=== PATIENT | female | born 1975 | race Two or more races ===

== ENCOUNTER 2019-07-24 18:54 | Observation (INO) | payer OTHER, SELFPAY ==
[2019-07-24] VITALS (11 sets, daily range): BP systolic 119–149; BP diastolic 68–103; PULSE 75–98; RESP 16–20; TEMP 36.4–36.8; O2SAT 98–100; BMI 24.7; BMI 24.2
--- NOTE | 2019-07-24 19:34 | EKG12_ITS ---
Test Reason : CP Blood Pressure : / mmHG Vent. Rate : 076 BPM Atrial Rate : 076 BPM P-R Int : 156 ms QRS Dur : 074 ms QT Int : 376 ms P-R-T Axes : 057 036 044 degrees QTc Int : 423 ms Normal sinus rhythm Normal ECG Confirmed by BRANDY HUGHES, ELVA ([id number]), editorial project manager JOSH CASTELLON ([id number]) on 07/28/2019 9:47:42 AM Referred By: Reese Bueno Confirmed By:PRISCILLA NAVA MD
--- NOTE | 2019-07-24 19:34 | CT_ITS ---
STUDY: CT BRAIN WITHOUT CONTRAST REASON FOR EXAM: Female, 44 years old. Left arm weakness and numbness RADIATION DOSAGE (If Supplied By Facility): CTDIvol = ( 44.99 ) mGy, DLP = ( 7450.49 ) mGycm TECHNIQUE: Transaxial CT imaging of the brain was performed without administration of intravenous contrast material. Individualized dose optimization techniques were used for this CT. COMPARISON: No relevant priors. FINDINGS: Normal soft tissue structures. Normal calvarium. Normal size ventricles and extra-axial spaces for the patient's age. Normal white matter tracts of the cerebral hemispheres. Normal basal ganglia and thalami. Normal brainstem. Normal cerebellum. There is no intracranial hemorrhage. There are no findings of an acute ischemic infarction. Normal visualized paranasal sinuses. CT/Brain/Head without Contrast IMPRESSION: Normal unenhanced CT scan of the brain. N.B. : The above information has been verbally conveyed by Tylor Chaudhari MD to Rajani Arreaga MD, on 07/24/2019 19:57:12 (ET). Electronically Signed: Tylor Chaudhari MD at 19:58 EDT , Service support ,
--- NOTE | 2019-07-24 19:34 | RAD_ITS ---
STUDY: X-RAY CHEST REASON FOR EXAM: Female, 44 years old. Intermittent chest pain TECHNIQUE: Single AP portable view of the chest. COMPARISON: None. FINDINGS: EKG leads overlie the chest The lungs are clear and expanded. There is no demonstrated pleural abnormality. Normal size heart. Normal mediastinum and brooke. Normal visualized pulmonary arteries. Normal visualized aortic arch and descending thoracic aorta. Normal visualized thoracic spine. Normal visualized ribs, clavicles, and shoulders. There is no demonstrated abnormality of the visualized soft tissue structures of the upper abdomen. RAD/Chest 1 View IMPRESSION: Normal x-ray examination of the chest. Electronically Signed: Tylor Chaudhari MD at 20:11 EDT , Service support ,
[2019-07-24 19:46] LABS: Bedside Glucose 98 mg/dL (70-110)
--- NOTE | 2019-07-24 19:46 | ED.RN ---
[facility] CALLED AND RECIEVED PT INFORMATION. PT IN CT SCAN. WILL CALL BACK WHEN PT RETURNS FROM CT TO ROOM. DR. CARRASCO MADE AWARE.
[2019-07-24 20:04] LABS: Absolute Lymphocyte Count 3.67 X10^3/uL (0.83-4.51); Absolute Neutrophil Count 6.1 X10^3/uL (2.0-7.7); Basophil# 0.04 X10^3/uL; Basophil% 0.4 % (0-1); Eosinophil# 0.16 X10^3/uL; Eosinophils% 1.5 % (0-5); Hemoglobin 10.8 g/dL (12.0-15.0); Lymphocyte # 3.67 X10^3/ul (4.0); Lymphocyte % 34.6 % (19-41); Mean Corpuscular Hgb 21.8 pg (27.0-32.0); Mean Corpuscular Volume 72.6 fL (81-99); Mean Platelet Vol. 10.3 fl (6.2-12.0); Monocyte# 0.56 X10^3/uL; Monocyte% 5.3 % (0-10); NRBC Flagged by Analyzer 0 % (0-5); Neutrophil # 6.14 X10^3/uL (2.7-7.7); Neutrophil % 57.9 % (47-70); Platelet Count 348 K/mm3 (150-450); RBC Distribution Width CV 16.7 % (11.6-14.6); RBC Distribution Width SD 42.2 fl (35.1-43.9); Red Blood Count 4.96 M/mm3 (4.2-5.4); White Blood Count 10.6 K/mm3 (4.4-11.0)
[2019-07-24 20:12] LABS: International Normalized Ratio 0.9
[2019-07-24 20:13] LABS: Partial Thromboplast Time 25.8 Seconds (24.1-36.2)
[2019-07-24 20:25] LABS: Anion Gap 8 (5-15); BUN 12 mg/dL (7-18); Calcium,Total 9.3 mg/dL (8.5-10.1); Chloride 106 mmol/L (98-107); Creatinine, Serum 0.66 mg/dL (0.55-1.02); EST Glomerular Filtration Rate 103 mL/min (>60); Est Glom Filt Rate - Afr Amer 125 mL/min (>60); Estimated Creatinine Clearance 95.89 ml/min; Glucose 95 mg/dL (74-106); Potassium 3.6 mmol/L (3.5-5.1); Sodium Level 139 mmol/L (136-145)
[2019-07-24] MEDS: Aspirin 325 MG Tablet PO (21:13)
--- NOTE | 2019-07-24 22:41 | ED.RN ---
PER DR. CARRASCO, PT NO LONGER NEEDS NIHSS.
--- NOTE | 2019-07-24 22:46 | ED.VISSUMM ---
- ER Visit Summary Date of Service: 07/24/19 Chief Complaint: Chest pain History of Present Illness: The patient is a 44 F presenting with chest pain. Patient states she has had intermittent left chest pain which started yesterday. She states the pain has been waxing and waning. It is a heaviness in her left chest. She does not recall anything that makes this better or worse. She denies shortness of breath, nausea, vomiting, diaphoresis. Denies lightheadedness or syncope. She also states that she has had left arm and leg tingling sensation. She had this this morning and it went away, returned again at 530 this evening. She denies CAD risk factors. No PE/DVT risk factors. Physical Examination: Vitals are stable. Patient is afebrile. Alert no acute distress. HEENT exam is unremarkable. Neck is supple. Lungs are clear and equal bilaterally. Heart is regular rate and rhythm. Abdomen is soft nontender nondistended. Extremities are unremarkable. Skin is warm and dry. NIH 1: Sensation left arm and leg Remainder of exam is unremarkable. Emergency Department Course and Treatment: EKG is sinus rate of 76 with no acute ischemic changes. Chest x-ray shows no acute process. On arrival her NIH is 1. Her symptoms have been intermittent. It had been completely resolved and returned again 2 hours prior to arrival to the ED. Discussed with [facility] neurology. Patient was evaluated by [facility] neurology per robot. CT head shows no acute process. TPA is not recommended at this time. Patient states her symptoms are improving. CBC shows hemoglobin 10.8. Chemistries unremarkable. INR 0.9. Troponin is negative. Patient was given aspirin after passing swallow evaluation. Discussed with the hospitalist for admission. Disposition: Observation Impression: Chest pain, left arm paresthesia This note was generated with [employer] dictation software. It may contain incorrect words, spelling, and punctuation that were not noted in review of the chart prior to signing
--- NOTE | 2019-07-24 23:28 | EKG12_ITS ---
Test Reason : ADMIT Blood Pressure : / mmHG Vent. Rate : 076 BPM Atrial Rate : 076 BPM P-R Int : 118 ms QRS Dur : 070 ms QT Int : 376 ms P-R-T Axes : 037 012 032 degrees QTc Int : 423 ms Normal sinus rhythm Normal ECG When compared with ECG of 24-JUL-2019 19:04, MANUAL COMPARISON REQUIRED, DATA IS UNCONFIRMED Confirmed by SEGUNDO COLEMAN ([id number]), make up editor JOSH CASTELLON ([id number]) on 07/28/2019 10:45:46 AM Referred By: Reese Bueno Confirmed By:SEGUNDO COLEMAN
--- NOTE | 2019-07-24 23:32 | PCM.HP.STD ---
Problem List (1) Chest pain Status: Acute (2) Left-sided tingling Status: Acute History of Present Illness Date of Admission: 07/24/19 Chief Complaint: Chest pain today The patient is a 44 year old F with no significant past medical history came to ER with chest pain that started yesterday evening. The chest pain is intermittent, left-sided, lasted for few minutes but is getting more prolonged today. She denies associated shortness of breath, palpitation, missed heartbeat, dizziness, blurry vision or diaphoresis. Chest pain felt like heaviness. Today afternoon about 1330 hrs. she also had left arm and left leg tingling sensation which returned at about 5:30 PM on the day of admission. No first-degree family history of coronary artery disease/PR or stroke. Her mother has diabetes. She denies any focal weakness, neck pain, headache, loss of consciousness or other stroke symptoms. Tingling sensation is resolved. Telemetry stroke team was consulted from ER physician Dr. Arreaga was told no high risk for stroke. CT head no acute process. No TPA recommended. Aspirin was given. Patient was advised MRI brain tomorrow. [] EKG shows normal sinus rhythm 76 bpm. Chest x-ray normal. Chest pain is resolved. Patient took Prilosec yesterday thinking of acid reflux pain. Past Medical History Allergies No Known Allergies Allergy (Verified 07/24/19 18:57) Home Medications: Ambulatory Orders Medication Instructions Recorded Omeprazole Magnesium [Prilosec Otc] 20 mg PO DAILY 07/24/19 Smoking Status: Never smoker - *Family History Maternal History Items: Diabetes, No pertinent history - No history of cardiac disease, stroke or peripheral artery disease in first-degree family relative. Review of Systems Constitutional: Denies: Chills, Fever, Weight Change HEENT: Denies: Head Aches, Sinus Congestion, Sinus Drainage Cardiovascular: Reports: Chest Pain. Denies: Palpitations Respiratory: Denies: Cough, Shortness of breath at rest, Sputum production Gastrointestinal: Denies: Abdominal Pain, Nausea, Vomiting Genitourinary: Denies: Dysuria Musculoskeletal: Denies: Joint Pain, Joint Tenderness Skin: Denies: Rash, Wounds Neurological: Reports: Tingling. Denies: Focal weakness, Numbness Psychiatric: Denies: Anxiety, Depression, Homicidal Ideations, Suicidal Ideations Hematologic/ Lymphatic: Denies: Easy Bruising, Easy Bleeding VTE Information - Inpt Only VTE Present on Admission: No VTE Mechan Device Prophylaxis: None VTE Pharm Prophylaxis ordered?: No Reason prophylaxis not ordered:: Procedure Not Indicated Patient Problems: Active and Suspected Problems Chest pain (Acute) Left-sided tingling (Acute) - Physical Exam General: Alert, Oriented x3, Cooperative HEENT: Atraumatic, PERRLA, EOMI, Normocephalic Neck: Supple, No JVD, Negative Carotid Bruits Lungs: Clear to auscultation, Normal air movement, No rhonchi, No wheeze, No rales Cardiovascular: Regular rate, Regular Rhythm, Normal S1, Normal S2, No murmurs Abdomen: Bowel Sounds Present, Soft, Non Tender Extremities: No edema, Capillary Refill Less than 3 Seconds Skin: No rashes, No breakdown Musculoskeletal: No Tenderness to Palpation of Joints or Extremities Neurological: Cranial nerves II-XII grossly intact, Deep Tendon Reflexes 2+/4 and Symmetrical, Neuro grossly intact, Motor Exam 5/5 strength throughout, - - NIH stroke scale 0. Tingling sensation of left upper and lower extremity has resolved. Psych/Mental Status: Normal Affect, Appropriate Vital Signs Temp Pulse Resp BP Pulse Ox 97.6 F L 94 18 149/85 H 100 07/24/19 18:57 07/24/19 23:00 07/24/19 23:00 07/24/19 23:00 07/24/19 23:00 Oxygen Delivery Method Room Air Weight: 144 lb 6.444 oz Body Mass Index (BMI) 24.7 Finger Stick Blood Glucose 98 Laboratory Tests Past 24 Hrs 07/24/19 07/24/19 07/24/19 19:57 19:57 19:57 WBC 10.6 RBC 4.96 Hgb 10.8 L Hct 36.0 L MCV 72.6 L MCH 21.8 L MCHC 30.0 L RDW Std Deviation 42.2 RDW Coeff of Leeann 16.7 H Plt Count 348 MPV 10.3 Immature Gran % (Auto) 0.300 Neut % (Auto) 57.9 Lymph % (Auto) 34.6 [place] % (Auto) 5.3 Eos % (Auto) 1.5 Baso % (Auto) 0.4 Absolute Neuts (auto) 6.1 Absolute Lymphs (auto) 3.67 Nucleated RBC % 0 PT 12.0 INR 0.9 APTT 25.8 Sodium 139 Potassium 3.6 Chloride 106 Carbon Dioxide 25.0 Anion Gap 8 BUN 12 Creatinine 0.66 Estim Creat Clear Calc 95.89 Est GFR (MDRD) Af Amer 125 Est GFR (MDRD) Non-Af 103 BUN/Creatinine Ratio 18.0 Glucose 95 Calcium 9.3 Troponin I < 0.015 POC Glucose 07/24/19 19:41 POC Glucose 98 Assessment/Plan All Active Problems Chest pain (Acute) Left-sided tingling (Acute) The patient is a 44 year old F with no significant past medical history came to ER with chest pain that started yesterday evening. [] EKG shows normal sinus rhythm 76 bpm. Chest x-ray normal. Chest pain is resolved. Patient took Prilosec yesterday thinking of acid reflux pain. 1. Atypical chest pain rule out acute coronary syndrome, possible GERD: Patient is being admitted in PCU. Serial troponin enzymes. Repeat EKG after 4 hours. Fasting profile tomorrow a.m. Treadmill nuclear stress tomorrow a.m. if serial troponins are negative. PPI ordered. 2. Left upper lower extremity transient tingling possible related to chest pain: Patient does not have neck pain or cervical radiculopathy. Telemetry stroke team was consulted from ER physician Dr. Arreaga was told no high risk for stroke. CT head no acute process. No TPA recommended. Aspirin was given. NIH stroke scale 0. MRI brain tomorrow a.m. 3. DVT prophylaxis: Low risk. Early ambulation encouraged. Laboratory Results 07/24/19 11:46: Magnesium Pending, Troponin I Pending 07/24/19 19:41: POC Glucose 98 07/24/19 19:57: WBC 10.6, RBC 4.96, Hgb 10.8 L, Hct 36.0 L, MCV 72.6 L, MCH 21.8 L, MCHC 30.0 L, RDW Std Deviation 42.2, RDW Coeff of Leeann 16.7 H, Plt Count 348, MPV 10.3, Immature Gran % (Auto) 0.300, Neut % (Auto) 57.9, Lymph % (Auto) 34.6, [place] % (Auto) 5.3, Eos % (Auto) 1.5, Baso % (Auto) 0.4, Absolute Neuts (auto) 6.1, Absolute Lymphs (auto) 3.67, Nucleated RBC % 0 07/24/19 19:57: PT 12.0, INR 0.9, APTT 25.8 07/24/19 19:57: Sodium 139, Potassium 3.6, Chloride 106, Carbon Dioxide 25.0, Anion Gap 8, BUN 12, Creatinine 0.66, Estim Creat Clear Calc 95.89, Est GFR (MDRD) Af Amer 125, Est GFR (MDRD) Non-Af 103, BUN/Creatinine Ratio 18.0, Glucose 95, Calcium 9.3, Troponin I < 0.015 Clinical Impression(s) from Imaging Studies Brain CT 07/24/19 19:34 IMPRESSION: Normal unenhanced CT scan of the brain. Chest X-Ray 07/24/19 19:34 IMPRESSION: Normal x-ray examination of the chest. Code Visit Inpatient E&M: 58063 Subs Hosp L2
[2019-07-25] VITALS (10 sets, daily range): BP systolic 111–134; BP diastolic 69–90; PULSE 67–88; RESP 14–18; TEMP 36.8; O2SAT 99–100
[2019-07-25] MEDS: 0.9% Normal Saline 1,000 ML 100 ML IV (00:27)
[2019-07-25] MEDS: Pantoprazole Sodium 40 MG Tablet PO ×2 (00:35→09:20)
[2019-07-25 00:47] LABS: Magnesium 1.7 mg/dL (1.6-2.6)
[2019-07-25 03:48] LABS: Cholesterol 182 mg/dL (200); High Density Lipoprotein 62 mg/dL; Thyroid Stim Hormone (TSH) 4.19 uIU/mL (0.358-3.74); Triglycerides 101 mg/dL; Very Low Density Lipoprotein 20 mg/dL (5-40)
--- NOTE | 2019-07-25 05:55 | MRI_ITS ---
STUDY: MRI BRAIN WITHOUT CONTRAST REASON FOR EXAM: Female, 44 years old. Left arm and leg tingling. TECHNIQUE: Standardized multiplanar fat and water weighted pulse sequences were obtained. COMPARISON: None. FINDINGS: Normal size of the ventricles and extra-axial spaces for the patient's age. Normal white matter tracts of the supratentorial brain. There is no evidence for recent intracranial ischemia or other cause of cytotoxic edema on diffusion weighted imaging (DWI). Normal T2* images of the brain without demonstrated susceptibility artifact. There is no demonstrated hemosiderin stain. Normal bilateral basal ganglia. Normal thalami. There is no extra-axial fluid accumulation. Normal flow voids within the major intracranial circulation suggesting patency by spin echo criteria. Normal sella turcica, pituitary gland, infundibular stalk, optic chiasm and hypothalamus. Normal tectal plate and pineal gland. Normal midbrain, donald and medulla. Normal cerebellum. Normal basal cisterns. Normal bilateral temporal bones. Normal bilateral internal auditory canals. No demonstrated orbital abnormality, within the constraints of a routine brain study. Normal visualized paranasal sinuses. Normal calvarium and skull base. Normal visualized soft tissue structures. Normal visualized upper cervical spine. MRI/Brain without Contrast IMPRESSION: 1. No evidence of acute intracranial bleed, mass or ischemia. Electronically Signed: Jaeysh Sanchez DO at 10:31 EDT , Service support ,
[2019-07-25] MEDS: Senna/Docusate Sodium 1 Tablet 2 TABLET PO (09:19)
[2019-07-25] MEDS: Aspirin E.C. 81 MG Tablet PO (09:19)
--- NOTE | 2019-07-25 11:25 | PN_ITS ---
<Karla German - Last Filed: 07/25/19 11:39> Patient Problems: Active and Suspected Problems Chest pain (Acute) Left-sided tingling (Acute) Subjective: Patient seen and examined. Patient reports she continues to have mild left upper extremity tingling that comes and goes. Denies neck pain. Denies left upper extremity numbness or unilateral weakness. Reports chest tenderness, denies chest pain. Chest pain seems to be reproducible. Plan for stress test in a.m. - Physical Exam General: Alert, Oriented x3, Cooperative HEENT: Atraumatic, PERRLA, EOMI, Normocephalic Neck: Supple, No JVD, Negative Carotid Bruits Lungs: Clear to auscultation, Normal air movement Cardiovascular: Regular rate, Regular Rhythm, Normal S1, Normal S2, No murmurs Abdomen: Bowel Sounds Present, Soft, Non Tender, Non-Distended Extremities: No clubbing, No cyanosis, No edema, Capillary Refill Less than 3 Seconds Skin: No rashes, No breakdown Musculoskeletal: No Tenderness to Palpation of Joints or Extremities Neurological: Cranial nerves II-XII grossly intact, Neuro grossly intact Psych/Mental Status: Normal Affect, Appropriate Vital Signs Temp Pulse Resp BP Pulse Ox 98.2 F 88 14 134/90 H 100 07/25/19 09:29 07/25/19 09:29 07/25/19 09:29 07/25/19 09:29 07/25/19 09:29 Oxygen Delivery Method Room Air Weight: 141 lb 1.533 oz Body Mass Index (BMI) 24.2 Finger Stick Blood Glucose 98 Intake and Output for Last 24 Hours 07/23/19 07/24/19 07/25/19 23:59 23:59 23:59 Intake Total 1703.33 / 1703.33 Balance 1703.33 / 1703.33 Laboratory Tests Past 24 Hrs 07/24/19 07/24/19 07/24/19 11:46 19:57 19:57 WBC 10.6 RBC 4.96 Hgb 10.8 L Hct 36.0 L MCV 72.6 L MCH 21.8 L MCHC 30.0 L RDW Std Deviation 42.2 RDW Coeff of Leeann 16.7 H Plt Count 348 MPV 10.3 Immature Gran % (Auto) 0.300 Neut % (Auto) 57.9 Lymph % (Auto) 34.6 [place] % (Auto) 5.3 Eos % (Auto) 1.5 Baso % (Auto) 0.4 Absolute Neuts (auto) 6.1 Absolute Lymphs (auto) 3.67 Nucleated RBC % 0 PT 12.0 INR 0.9 APTT 25.8 Sodium Potassium Chloride Carbon Dioxide Anion Gap BUN Creatinine Estim Creat Clear Calc Est GFR (MDRD) Af Amer Est GFR (MDRD) Non-Af BUN/Creatinine Ratio Glucose Calcium Magnesium 1.7 Troponin I < 0.015 Triglycerides Cholesterol LDL Cholesterol VLDL Cholesterol HDL Cholesterol TSH 07/24/19 07/25/19 19:57 02:52 WBC RBC Hgb Hct MCV MCH MCHC RDW Std Deviation RDW Coeff of Leeann Plt Count MPV Immature Gran % (Auto) Neut % (Auto) Lymph % (Auto) [place] % (Auto) Eos % (Auto) Baso % (Auto) Absolute Neuts (auto) Absolute Lymphs (auto) Nucleated RBC % PT INR APTT Sodium 139 Potassium 3.6 Chloride 106 Carbon Dioxide 25.0 Anion Gap 8 BUN 12 Creatinine 0.66 Estim Creat Clear Calc 95.89 Est GFR (MDRD) Af Amer 125 Est GFR (MDRD) Non-Af 103 BUN/Creatinine Ratio 18.0 Glucose 95 Calcium 9.3 Magnesium Troponin I < 0.015 < 0.015 Triglycerides 101 Cholesterol 182 LDL Cholesterol 100 VLDL Cholesterol 20 HDL Cholesterol 62 TSH 4.19 H POC Glucose 07/24/19 19:41 POC Glucose 98 Medical Necessity - Tobacco Use Smoking Status: Never smoker Assessment/Plan All Active Problems Chest pain (Acute) Left-sided tingling (Acute) 1. Atypical chest pain, rule out ACS-troponin negative. EKG without ST-T changes. Plan for stress test in a.m. Continue aspirin. 2. Left upper extremity tingling-MRI of brain shows no acute abnormality. Possible cervical radiculopathy. No symptoms currently, outpatient follow-up. 3. GERD- continue PPI. DVT prophylaxis-not indicated, early ambulation This patient was seen by Karla German NP-C under the supervision of Dr. Darby. <Ryan Darby - Last Filed: 07/25/19 11:58> - Physical Exam Vital Signs Temp Pulse Resp BP Pulse Ox 98.2 F 88 14 134/90 H 100 07/25/19 09:29 10/13/19 09:29 07/25/19 09:29 07/25/19 09:29 07/25/19 09:29 Oxygen Delivery Method Room Air Weight: 64 kg Body Mass Index (BMI) 24.2 Finger Stick Blood Glucose 98 Intake and Output for Last 24 Hours 07/23/19 07/24/19 07/25/19 23:59 23:59 23:59 Intake Total 1703.33 / 1703.33 Balance 1703.33 / 1703.33 Laboratory Tests Past 24 Hrs 07/24/19 07/24/19 07/24/19 11:46 19:57 19:57 WBC 10.6 RBC 4.96 Hgb 10.8 L Hct 36.0 L MCV 72.6 L MCH 21.8 L MCHC 30.0 L RDW Std Deviation 42.2 RDW Coeff of Leeann 16.7 H Plt Count 348 MPV 10.3 Immature Gran % (Auto) 0.300 Neut % (Auto) 57.9 Lymph % (Auto) 34.6 [place] % (Auto) 5.3 Eos % (Auto) 1.5 Baso % (Auto) 0.4 Absolute Neuts (auto) 6.1 Absolute Lymphs (auto) 3.67 Nucleated RBC % 0 PT 12.0 INR 0.9 APTT 25.8 Sodium Potassium Chloride Carbon Dioxide Anion Gap BUN Creatinine Estim Creat Clear Calc Est GFR (MDRD) Af Amer Est GFR (MDRD) Non-Af BUN/Creatinine Ratio Glucose Calcium Magnesium 1.7 Troponin I < 0.015 Triglycerides Cholesterol LDL Cholesterol VLDL Cholesterol HDL Cholesterol TSH 07/24/19 07/25/19 19:57 02:52 WBC RBC Hgb Hct MCV MCH MCHC RDW Std Deviation RDW Coeff of Leeann Plt Count MPV Immature Gran % (Auto) Neut % (Auto) Lymph % (Auto) [place] % (Auto) Eos % (Auto) Baso % (Auto) Absolute Neuts (auto) Absolute Lymphs (auto) Nucleated RBC % PT INR APTT Sodium 139 Potassium 3.6 Chloride 106 Carbon Dioxide 25.0 Anion Gap 8 BUN 12 Creatinine 0.66 Estim Creat Clear Calc 95.89 Est GFR (MDRD) Af Amer 125 Est GFR (MDRD) Non-Af 103 BUN/Creatinine Ratio 18.0 Glucose 95 Calcium 9.3 Magnesium Troponin I < 0.015 < 0.015 Triglycerides 101 Cholesterol 182 LDL Cholesterol 100 VLDL Cholesterol 20 HDL Cholesterol 62 TSH 4.19 H POC Glucose 07/24/19 19:41 POC Glucose 98 Assessment/Plan This patient was seen in conjunction with HEIDI Ulloa . I have independently interviewed and examined the patient and reviewed pertinent historical, laboratory, and other data. Please refer to HEIDI Ulloa note for details of this patient's presentation, findings, and recommendations. I have reviewed HEIDI Ulloa note and concur with documented findings. In brief, patient is a 44-year-old female admitted with chest pain as well as paresthesias involving her left side Physical Examination: GENERAL: cooperative HEENT: Atraumatic; moist oral mucosa EYES; Anicteric, Normal Conjunctiva NECK; supple, normal thyroid, RESPIRATORY: Diminished to auscultation, CARDIOVASCULAR: Regular S1 S2, no audible murmurs GI: soft, non-tender, normoactive bowel sounds, : No Renal angle tenderness; EXTREMITIES: No edema, no clubbing, no cyanosis. MUSCULOSKELETAL: No Joint Tenderness; NEURO: Awake; no lateralizing signs. SKIN: No Rash PSYCH; Normal affect Assessment: 1. Atypical chest pain 2. Left-sided paresthesias 3. GERD 4. Iron deficiency anemia?microcytic anemia (patient is a vegetarian) 5. DVT prophylaxis Recommendations: 1. I have discussed the results of my overview and impressions with the patient 2. Options for management were reviewed Code Visit OBSV E&M: 43520 Subsequent observation care L3
[2019-07-26] VITALS (8 sets, daily range): BP systolic 122–133; BP diastolic 66–84; PULSE 71–94; RESP 12–16; TEMP 36.4–36.8; O2SAT 97–100
[2019-07-26] MEDS: Aspirin E.C. 81 MG Tablet PO (05:12)
--- NOTE | 2019-07-26 05:55 | EKG12_ITS ---
Test Reason : AM EKG Blood Pressure : / mmHG Vent. Rate : 078 BPM Atrial Rate : 078 BPM P-R Int : 142 ms QRS Dur : 074 ms QT Int : 368 ms P-R-T Axes : 055 024 036 degrees QTc Int : 419 ms Normal sinus rhythm Normal ECG Confirmed by CLAUDIA HUGHES, BROOKS ([id number]), rewrite editor JOSH CASTELLON ([id number] on 07/28/2019 11:29:08 AM Referred By: Reese Bueno Confirmed By:BROOKS TAYLOR MD
[2019-07-26] MEDS: Pantoprazole Sodium 40 MG Tablet PO (08:17)
--- NOTE | 2019-07-26 10:42 | DCINST_ITS ---
- Discharge Diagnoses Current Active Problems: Current Active and Chronic Problems Chest pain (Acute) Left-sided tingling (Acute) You will use the following diet at home:: No restrictions Discharge Activity: Return to Normal Activity Call your doctor if you observe: Shortness of breath, Dizziness, Fainting spells, Chest pain Allergies/Adverse Reactions: Allergies No Known Allergies Allergy (Verified 07/24/19 18:57) Medications to take at Discharge Omeprazole Magnesium [Prilosec Otc] 20 mg PO DAILY 07/24/19 Primary Care Physician: Gladys Murray MD [Primary Care Provider] - Please follow up with your Primary Care Physician in: 1 Week Test Results: Test results from this visit will be discussed in further detail at your follow- up appointment, if applicable. Proposed Discharge Date: 07/26/19
--- NOTE | 2019-07-26 12:02 | PCM.DC.SUM ---
<Karla German - Last Filed: 07/26/19 12:14> Discharge Date and Diagnosis Date of Admission: 07/24/19 Date of Discharge: 07/26/19 - Primary Discharge Diagnosis Active and Suspected Problems 1. Musculoskeletal chest pain, ACS ruled out 2. Left-sided paresthesias, suspect secondary to cervical radiculopathy-CVA ruled out 3. GERD 4. Iron deficiency anemia Hospital Course and Treatment Imaging Results: Diagnostic Data Brain CT 07/24/19 19:34 IMPRESSION: Normal unenhanced CT scan of the brain. N.B. : The above information has been verbally conveyed by Tylor Chaudhari MD to Rajani Arreaga MD, on 07/24/2019 19:57:12 (ET). Electronically Signed: Tylor Chaudhari MD at 19:58 EDT , Service support , ADDENDUM: 07/24/192004 IMPRESSION: Normal unenhanced CT scan of the brain. N.B. : The above information has been verbally conveyed by Tylor Chaudhari MD to Rajani Arreaga MD, on 07/24/2019 19:57:12 (ET). Electronically Signed: Tylor Chaudhari MD at 19:58 EDT , Service support , Chest X-Ray 07/24/19 19:34 IMPRESSION: Normal x-ray examination of the chest. Electronically Signed: Tylor Chaudhari MD at 20:11 EDT , Service support , Brain MRI 07/25/19 05:55 IMPRESSION: 1. No evidence of acute intracranial bleed, mass or ischemia. Electronically Signed: Jayesh Sanchez DO at 10:31 EDT , Service support , Operations: None Procedures: Stress test Summary of Care Provided: The patient is a 44 year old F admitted 07/24/2019 due to chest pain. 1. Musculoskeletal chest pain, ACS ruled out-troponin negative. EKG without ST-T changes. Patient underwent stress test which was negative for ischemia. Suspect pain is musculoskeletal in nature. Follow-up with primary care physician in 1 week. 2. Left-sided paresthesias, suspect secondary to cervical radiculopathy-CVA ruled out. MRI of brain showed no acute abnormality. Patient denies neck pain. 3. GERD-continue home omeprazole regimen. 4. Iron deficiency anemia/microcytic anemia-recommend outpatient iron studies, B12 and folate as deficiencies may be related to paresthesias as well. Patient is a vegetarian, recommend iron supplementation pending outpatient iron studies. General: Alert, Oriented x3, Cooperative HEENT: Atraumatic, PERRLA, EOMI, Normocephalic Neck: Supple, No JVD, Negative Carotid Bruits Lungs: Clear to auscultation, Normal air movement Cardiovascular: Regular rate, Regular Rhythm, Normal S1, Normal S2, No murmurs Abdomen: Bowel Sounds Present, Soft, Non Tender, Non-Distended Extremities: No clubbing, No cyanosis, No edema, Capillary Refill Less than 3 Seconds Skin: No rashes, No breakdown Musculoskeletal: No Tenderness to Palpation of Joints or Extremities Neurological: Cranial nerves II-XII grossly intact, Neuro grossly intact Psych/Mental Status: Normal Affect, Appropriate Patient seen and examined prior to discharge. Physical assessment as noted above. Patient is stable for discharge with follow up recommendations as noted above. This patient was seen by HEIDI Ulloa under the supervision of Dr. Gray. - Physical Exam Vital Signs Temp Pulse Resp BP Pulse Ox 97.6 F L 76 12 122/66 H 97 07/26/19 09:10 07/26/19 10:58 07/26/19 09:10 07/26/19 09:10 07/26/19 09:10 Oxygen Delivery Method Room Air Weight: 141 lb 1.533 oz Body Mass Index (BMI) 24.2 Finger Stick Blood Glucose 98 Intake and Output for Last 24 Hours 07/24/19 07/25/19 07/26/19 23:59 23:59 23:59 Intake Total 2480.00 / 2720.00 720 / 720 Balance 2480.00 / 2720.00 720 / 720 Discharge Diet: No Restrictions Discharge Activity: Return to Normal Activity Call your doctor if you observe: Shortness of breath, Dizziness, Fainting spells, Chest pain Home Medications: Medications to take at Discharge Omeprazole Magnesium [Prilosec Otc] 20 mg PO DAILY 07/24/19 Primary Care Physician: Gladys Murray MD [Primary Care Provider] - Please follow up with your Primary Care Physician in: 1 Week Disposition: Home Minutes spent on discharge:: 35 Patient Condition:: Stable Medical Necessity - Tobacco Use Smoking Status: Never smoker Meaningful Use Info Meaningful Use Diagnoses (Choose all that apply): None applicable <Arnulfo Gray F - Last Filed: 07/26/19 13:50> Hospital Course and Treatment Imaging Results: 07/26/19 05:55 Nuclear Stress Test - Treadmil [NM] Routine Summary of Care Provided: The patient is a 44 year old F [] - Physical Exam Vital Signs Temp Pulse Resp BP Pulse Ox 97.6 F L 76 12 122/66 H 97 07/26/19 09:10 07/26/19 10:58 07/26/19 09:10 07/26/19 09:10 07/26/19 09:10 Oxygen Delivery Method Room Air Weight: 141 lb 1.533 oz Body Mass Index (BMI) 24.2 Finger Stick Blood Glucose 98 Intake and Output for Last 24 Hours 07/24/19 07/25/19 07/26/19 23:59 23:59 23:59 Intake Total 2480.00 / 2720.00 720 / 720 Balance 2480.00 / 2720.00 720 / 720 Code Visit Addendum: Dr. Gray I personally examined the patient and reviewed the chart. I agree with the above. 44-year-old female presenting with chest pain. She was not sure if this was from reflux or if it was due to her work where she thinks she may have pinched a nerve in her shoulder or strained her chest wall muscle. She had 3- troponins as well as a normal EKG. Stress test today was unremarkable and she was discharged with the understanding that she needs to follow-up with her primary care doctor as an outpatient. OBSV E&M: 05676 Observation care discharge
--- NOTE | 2019-07-26 13:37 | STRESSREP_ITS ---
Stress Test Report Date: 07/26/2019 Procedure: Exercise tolerance test/imaging study Indications: Chest pain Consent: Per the patient Procedure: The patient exercised on a Jose protocol for 7 minutes and 34 seconds achieving a peak heart rate of 181 bpm (101 % predicted maximal heart rate) with a peak blood pressure 152/68 mmHg and a peak MET capacity of 9.4 METs. The baseline ECG demonstrated normal sinus rhythm. The peak exercise ECG demonstrated no significant EKG changes suggestive of ischemia. EKG during recovery revealed no significant ischemic changes. [There were no significant cardiac dysrhythmias pretest, during exercise, or recovery]. The functional capacity was considered normal for age. There was [no complaint of chest discomfort during exercise or recovery]. The examination was discontinued secondary to dyspnea. Impression: 1. Technically adequate (percent predicted maximal heart rate greater than 85%) exercise tolerance test 2. Stress test is negative for exercise-induced EKG changes of ischemia 3. The test test is negative for exercise-induced chest pain 4. Functional capacity is normal for age 5. Nuclear images pending Myocardial perfusion imaging study: Technique: The patient was injected with 12 mCi of technetium 99m Cardiolite and subsequently rest SPECT Cardiolite nuclear imaging was obtained in the horizontal long, vertical long, and short axis views. The patient exercised on a Jose protocol. Please see above for details. The patient was injected with 36 mCi of technetium 99m Cardiolite and subsequently stress SPECT Cardiolite nuclear imaging was obtained in the horizontal long, vertical long, and short axis views. A gated Cardiolite study at peak stress was obtained. Interpretation: Rest and stress SPECT Cardiolite nuclear imaging status post realignment, normalization, and attenuation correction, demonstrates overall normal myocardial radioisotope uptake. The gated Cardiolite study demonstrates no significant regional wall motion abnormalities. The reported LVEF is greater than 70 %. Impression: 1. There is no evidence of significant ischemia or infarction. 2. The gated Cardiolite study reports an LVEF of greater than 70 %. This note was generated with M:Metrics[employer] software. It may contain incorrect words, spelling, and punctuation that were not noted in checking the note before signing.
== END 2019-07-26 10:43 | disposition home or self-care (01) ==
LOC: ED 19:27 → PCU 23:35
PROVIDERS: Admitting Provider Internal Medicine; Emergency Provider Emergency Medicine; Family Provider Internal Medicine; PCP Internal Medicine; Referring Provider Internal Medicine; Visit Provider Family Medicine
DX: R07.89 Other chest pain (principal); R20.2 Paresthesia of skin; D50.9 Iron deficiency anemia, unspecified; K21.9 Gastro-esophageal reflux disease without esophagitis; R29.701 NIHSS score 1
CPT/HCPCS: 36415; 70450; 70551; 71045; 78452; 80048; 80061; 82962; 83735; 84443; 84484; 85025; 85610; 85730; 93005; 93017; 96360; 96361; 99218; 99285; A9500; J7030; A4216; G0378